=== PATIENT | female | born 1995 | race African-American/Black ===

== ENCOUNTER 2016-12-16 00:45 | Emergency (ER) | payer SELFPAY ==
[2016-12-16] MEDS ORDERED: cefTRIAXone 250 MG in Lidocaine 1% 1 ML IM ONE (01:42)
[2016-12-16] MEDS ORDERED: metroNIDAZOLE 250 MG Tab PO ONE (01:42)
[2016-12-16] MEDS ORDERED: Azithromycin 250 MG Tab PO ONE (01:42)
--- NOTE | 2016-12-16 01:49 | EDM.PDOC ---
ED HPI GENERAL MEDICAL PROBLEM - General Chief Complaint: PASSENGER SERVICE MANAGER Problem Stated Complaint: NEED STD CHECK Time Seen by Provider: 12/16/16 01:23 - History of Present Illness INITIAL COMMENTS - FREE TEXT/NARRATIVE: HISTORY AND PHYSICAL: History of present illness: The patient is a healthy 21-year-old female who presents with complaints of being exposed to an STD and starting to have some discharge that she noticed today. The patient states that she was diagnosed with chlamydia 4 weeks ago was treated with doxycycline and completed the course of therapy but has had exposure to the same partner who has chlamydia and has not been treated. She has not had any pelvic pain irregular vaginal bleeding back pain nausea vomiting fevers or chills. She only noticed some discharge today and she was concerned and came here to get checked. She is unsure if she is . Review of systems: As per history of present illness and below otherwise all systems reviewed and negative. Past medical history: As per history of present illness and as reviewed below otherwise noncontributory. Surgical history: As per history of present illness and as reviewed below otherwise noncontributory. Social history: No reported history of drug or alcohol abuse. Family history: As per history of present illness and as reviewed below otherwise noncontributory. Physical exam: Gen.: Well-developed well-nourished female who is nontoxic and moves easily in the ED HEENT: Atraumatic, normocephalic, negative for conjunctival pallor or scleral icterus, mucous membranes moist, throat clear, neck supple, nontender, trachea midline. Lungs: Clear to auscultation, breath sounds equal bilaterally, chest nontender. Heart: S1S2, regular rate and rhythm no overt murmurs Abdomen: Soft, nondistended, nontender. Negative for masses or hepatosplenomegaly. Negative for costovertebral tenderness. Pelvis: Stable nontender. Genitourinary: Deferred. Rectal: Deferred. Extremities: Atraumatic, negative for cords or calf pain. Neurovascular unremarkable. Neuro: Awake, alert, oriented. Cranial nerves II through XII unremarkable. Cerebellum unremarkable. Motor and sensory unremarkable throughout. Exam nonfocal. Diagnostics: Urine for GC and Chlamydia ECG Therapeutics: Zithromax Flagyl Rocephin I discussed with the patient that we would treat her for everything here but I would also send her home with upper prescription of doxycycline pending the results from that GC and chlamydia results. In light of her recent infection and treatment and the rapid exposure and her young age I will treat her with the doxycycline. She has no pelvic pain and advised her to call and follow-up with gynecology for reevaluation and more preventative care Impression: Recurrent STD exposure Definitive disposition and diagnosis as appropriate pending reevaluation and review of above. - Related Data Allergies Allergy/AdvReac Type Severity Reaction Status Date / Time citrus Allergy Other Uncoded 12/16/16 00:57 Home Meds: Home Meds . [No Known Home Meds] 12/16/16 [History] Past Medical History - Past Health History Medical/Surgical History: Denies Medical/Surgical History Social & Family History - Family History Family Medical History: Noncontributory - Tobacco Use Smoking Status *Q: Never Smoker Second Hand Smoke Exposure: Yes - Caffeine Use Caffeine Use: Reports: Coffee Caffeine Use Comment: 1-2cup/week - Recreational Drug Use Recreational Drug Use: Yes Recreational Drug Type: Reports: Marijuana/Hashish Recreational Drug Last Use: "4weeks ago" ED ROS GENERAL - Review of Systems Review Of Systems: ROS reveals no pertinent complaints other than HPI. ED EXAM, GENERAL - Physical Exam Exam: See Below (See dictation) Course - Vital Signs Last Recorded V/S: Last Vital Signs Temp 36.4 C 12/16/16 00:57 Pulse 66 12/16/16 00:57 Resp 18 12/16/16 00:57 BP 120/51 L 12/16/16 00:57 Pulse Ox 98 12/16/16 00:57 - Orders/Labs/Meds Orders: Active Orders 24 hr Category Date Time Status CHLAMYDIA TRACHOMATIS/GC AMPLF Stat Lab 12/16/16 01:25 Received Labs: Laboratory Tests 12/16/16 Range/Units 01:25 Urine HCG, Qual NEGATIVE (NEGATIVE) Meds: Medications Discontinued Medications Generic Name Dose Route Start Last Admin Trade Name Freq PRN Reason Stop Dose Admin Azithromycin 1,000 mg 12/16/16 01:42 Zithromax PO 12/16/16 01:43 ONETIME ONE Ceftriaxone Sodium 250 mg/ 1 mls @ 1 mls/sec 12/16/16 01:42 Lidocaine HCl IM 12/16/16 01:43 ONETIME ONE Metronidazole 2,000 mg 12/16/16 01:42 Metronidazole PO 12/16/16 01:43 NOW ONE Departure - Departure Time of Disposition: 01:48 Disposition: Home, Self-Care 01 Condition: Good Clinical Impression: STD exposure, Vaginal discharge - Discharge Information Forms: ED Department Discharge Additional Instructions: The following information is given to patients seen in the emergency department who are being discharged to home. This information is to outline your options for follow-up care. We provide all patients seen in our emergency department with a follow-up referral. The need for follow-up, as well as the timing and circumstances, are variable depending upon the specifics of your emergency department visit. If you don't have a primary care physician on staff, we will provide you with a referral. We always advise you to contact your personal physician following an emergency department visit to inform them of the circumstance of the visit and for follow-up with them and/or the need for any referrals to a consulting specialist. The emergency department will also refer you to a specialist when appropriate. This referral assures that you have the opportunity for followup care with a specialist. All of these measure are taken in an effort to provide you with optimal care, which includes your followup. Under all circumstances we always encourage you to contact your private physician who remains a resource for coordinating your care. When calling for followup care, please make the office aware that this follow-up is from your recent emergency room visit. If for any reason you are refused follow-up, please contact the [facility] emergency department at and ask to speak to the emergency department charge nurse. [facility] [address] [place] [id number] Please refrain from sexual intercourse for the next 7 days and afterwards use condoms at all times. Please do not have intercourse with anybody that has a known STD until they are fully treated. Please call and follow-up with a nurse sane using resources given to today. Return to ER as needed and as discussed. - My Orders Last 24 Hours: My Active Orders 12/16/16 01:25 CHLAMYDIA TRACHOMATIS/GC AMPLF Stat - Assessment/Plan Last 24 Hours: My Active Orders 12/16/16 01:25 CHLAMYDIA TRACHOMATIS/GC AMPLF Stat
[2016-12-16 02:48] VITALS: BP 101/66
== END 2016-12-16 02:46 | disposition home or self-care (01) ==
LOC: MW.ED 00:45
DX: N89.8 Other specified noninflammatory disorders of vagina (principal); Z20.2 Contact with and (suspected) exposure to infections with a predominantly sexual mode of transmission
CPT/HCPCS: 81025; 87491; 87591; 96372; 99283; A9270; J0696